=== PATIENT | female | born 1960 | race Caucasian/White ===

== ENCOUNTER 2018-11-21 07:17 | Emergency (ER) | payer BC, OTHER ==
[~2018-11-21] VITALS: Ht 167.6 cm; Wt 54.4 kg
[2018-11-21] MEDS ORDERED: KETOROLAC TROMETHAMINE 30 MG/ML VIAL IV STA (07:22)
[2018-11-21] MEDS ORDERED: METOCLOPRAMIDE HCL 10 MG/2ML VIAL IV ONE (07:30)
[2018-11-21] MEDS ORDERED: DIPHENHYDRAMINE HCL INJ 50 MG/ML VIAL IV ONE (07:30)
[2018-11-21] MEDS ORDERED: DEXAMETHASONE SOD PHOS 10 MG/1 ML VIAL IV ONE (07:30)
[2018-11-21] MEDS ORDERED: SODIUM CHLORIDE 0.9% 1000ML 1,000 ML IV ONE (07:30)
[2018-11-21 09:01] VITALS: BP 116/83
== END 2018-11-21 09:15 | disposition home or self-care (01) ==
LOC: ER 07:22
DX: R51 Headache (principal); G43.519 Persistent migraine aura without cerebral infarction, intractable, without status migrainosus; F17.210 Nicotine dependence, cigarettes, uncomplicated
CPT/HCPCS: 99283; J1100; J1200; J1885; J2765; J7030

== ENCOUNTER → 2019-02-25 | Day surgery (SDC) | payer BC ==
[~2019-02-25] MED LIST: ALPRAZOLAM2 MG PO; FENTANYL CITRATE/PF 100MCG/2 ML INJ ONE; MIDAZOLAM HCL 2 MG/2 ML VIAL ONE; NORCO 7.5-3251 EACH PO; ONE A DAY VITAMIN PO; OXYBUTYNIN CHLOR5 MG PO; PROPOFOL IV EMULSION 10 MG/ML 50 ML VIAL ONE; STOOL SOFTENER50 MG PO; TIZANIDINE HCL4 M1 PO; VITAMIN D31000 UNIT PEG
[2019-02-25 08:55] VITALS: BP 138/95
== END | disposition home or self-care (01) ==
LOC: OR 05:29
PROVIDERS: ATTEND Internal Medicine Gastroenterology
DX: Z12.11 Encounter for screening for malignant neoplasm of colon (principal); K63.5 Polyp of colon; K62.1 Rectal polyp; K62.0 Anal polyp; K64.8 Other hemorrhoids; Z71.3 Dietary counseling and surveillance; G89.29 Other chronic pain; F32.9 Major depressive disorder, single episode, unspecified; F41.9 Anxiety disorder, unspecified; Z88.1 Allergy status to other antibiotic agents; Z91.048 Other nonmedicinal substance allergy status; Z01.810 Encounter for preprocedural cardiovascular examination; Z68.1 Body mass index [BMI] 19.9 or less, adult; Z87.891 Personal history of nicotine dependence
CPT/HCPCS: 45380; 45385; 93005; J2250; J2704; 45384

== ENCOUNTER → 2019-04-10 | Day surgery (SDC) | payer BC ==
[2019-04-03 10:30] LABS: BASOPHILS % 0.6 % (0.0-1.0); EOSINOPHILS # (AUTO) 0.1 (0.0-0.4); EOSINOPHILS % 1.1 % (0.0-6.0); HEMATOCRIT 39.2 % (34.2-44.1); HEMOGLOBIN 12.8 g/dL (12.0-16.0); LYMPHOCYTES # (AUTO) 1.3 (1.0-3.2); LYMPHOCYTES % 23.7 % (18.0-39.1); MEAN CORPUSCULAR HEMOGLOBIN 31.4 pg (28-32); MEAN CORPUSCULAR HGB CONC 32.7 g/dL (31-35); MEAN CORPUSCULAR VOLUME 96.3 fL (81-99); MONOCYTES # (AUTO) 0.4 (0.2-0.8); MONOCYTES % 7.8 % (4.4-11.3); NEUTROPHILS # (AUTO) 3.6 (2.1-6.9); NEUTROPHILS % 66.4 % (38.7-80.0); PLATELET COUNT 162 x10e3/uL (140-360); RED BLOOD COUNT 4.07 x10e6/uL (3.6-5.1); RED CELL DISTRIBUTION WIDTH 13.2 % (11.7-14.4)
--- NOTE | 2019-04-03 10:45 | Diagnostic Imaging Report ---
EXAMINATION: CHEST 2 VIEWS INDICATION: Pre-operative. COMPARISON: Chest radiograph 08/10/2013. FINDINGS: TUBES and LINES: None. LUNGS: Lungs are well inflated. Biapical pleural-parenchymal opacity, suggestive of prior granulomatous disease. There is no evidence of pneumonia or pulmonary edema. PLEURA: No pleural effusion or pneumothorax. HEART AND MEDIASTINUM: The cardiomediastinal silhouette is unremarkable. BONES AND SOFT TISSUES: No acute osseous abnormality. UPPER ABDOMEN: No free air under the diaphragm. IMPRESSION: No acute radiographic abnormality. Signed by: Dr. Roxane Friend MD on 04/03/2019 10:42 AM
[2019-04-03 10:52] LABS: ANION GAP 12.9 mmol/L (8-16); CALCIUM 10.2 mg/dL (8.4-10.2); CREATININE, SERUM 1.14 mg/dL (0.57-1.11); POTASSIUM 4.9 mmol/L (3.5-5.1)
[~2019-04-10] MED LIST changes: +ACETAMINOPHEN 1000 MG/100 ML IV ONE; +BUPIVACAINE 0.25%/EPI 30ML SDV INJ ONE; +CEFOXITIN SOD 1 GM VIAL ONE; +DEXAMETHASONE SOD PHOS INJ 4 MG/ML VIAL ONE; +EPHEDRINE SULFATE INJ 50 MG/10 ML SYR ONE; +HYDROCODONE/APAP 7.5MG-325MG 1 EA TAB ONE; +HYDROMORPHONE 2MG/ML 2 MG/ML ML ONE; +KETOROLAC TROMETHAMINE 30 MG/ML VIAL ONE; +LIDOCAINE HCL 1% LOCAL INJ 20 ML VIAL ONE; +LIDOCAINE HCL 2% 30 ML TUBE ONE; +LIDOCAINE HCL 2% LOCAL INJ 5 ML SDV VIAL INJ ONE; +METOCLOPRAMIDE HCL 10 MG/2ML VIAL ONE; +ONDANSETRON HCL INJ 2MG/ML 2ML 2 MG/ML VIAL ONE; +PROMETHAZINE HCL (IM) 25 MG/ML VIAL ONE; +PROPOFOL IV EMULSION 10 MG/ML 20 ML VIAL ONE; -PROPOFOL IV EMULSION 10 MG/ML 50 ML VIAL ONE; +SEVOFLURANE INHAL SOLN 250 ML PEN BTL ONE; -VITAMIN D31000 UNIT PEG; +VITAMIN D31000 UNIT PO
--- OUTSIDE RECORDS SUMMARY | 2019-04-10 05:53 | XMS REPORT ---
Author Author [facility] [place] Address Unknown Phone Unavailable Care Team Providers Care Seed Expert Name Role Phone Joyce INTERIANO Unavailable Unavailable Problems This patient has no known problems. Allergies, Adverse Reactions, Alerts This patient has no known allergies or adverse reactions. Medications This patient has no known medications. Results Test Description Test Time Test Comments Text Results Atomic Results Result Comments CHEST 2 VIEWS 2019-04-03 10:40:00 [place] [address] Patient Name: HELEN KLINE MR #: [id number] : 1960 Age/Sex: 58/F Req #: [id number] Adm Physician: Ordered by: BIJAN INTERIANO MD Report #: [id number] Location: OR Room/Bed: Procedure: [id number] DX/CHEST 2 VIEWS Exam Date: 04/03/19 Exam Time: 1025 REPORT STATUS: Signed EXAMINATION: CHEST 2 VIEWS INDICATION: Pre- operative. COMPARISON: Chest radiograph 08/10/2013. FINDINGS: TUBES and LINES: None. LUNGS: Lungs are well inflated. Biapical pleural- parenchymal opacity, suggestive of prior granulomatous disease. There is no evidence of pneumonia or pulmonary edema. PLEURA: No pleural effusion or pneumothorax. HEART AND MEDIASTINUM: The cardiomediastinal silhouette is unremarkable. BONES AND SOFT TISSUES: No acute osseous abnormality. UPPER ABDOMEN: No free air under the diaphragm. IMPRESSION: No acute radiographic abnormality. Signed by: Dr. Ari Werner MD on 04/03/2019 10:42 AM Dictated By: ARI WERNER MD 104 Transcribed By: KARIME on 04/03/191041 COPY TO: BIJAN INTERIANO MD
--- NOTE | 2019-04-10 13:06 | Operative Report ---
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 POSTOPERATIVE DIAGNOSIS: Villous tumor of the rectum. OPERATION PERFORMED: Transanal resection of villous tumor of the rectum. ANESTHESIA: General. COMPLICATIONS: None. ESTIMATED BLOOD LOSS: Minimal. PROCEDURE IN DETAIL: With the patient lying in bed in the lithotomy position under good general anesthesia, the perineum was prepped with Betadine solution and draped in the usual manner. An anorectal block was then performed with 1% Xylocaine and 0.25% Marcaine mixed in equal parts. After this was done, examination revealed that the patient had a villous tumor that extended right up to the dentate line from about the 1 o'clock position to about the 4 o'clock position. A 0 chromic suture was then placed above highest point of the villous tumor and tied to itself. Once this was done and we had proximal control of the edge of the tumor, the external aspect of the dentate line was then sharply opened distal to the beginning of the villous tumor and the villous tumor was then sharply resected with the scissors to make sure that we had all borders of the lesion completely removed and the specimen was sent for pathological examination. After this was done, using that same 0 chromic suture, the colon was then oversewn all the way to the dentate line. After this was done, the mucosa and the skin were then reapproximated with interrupted sutures of 3-0 chromic. A Gelfoam pack impregnated with Xylocaine was placed. A dressing was applied. The sponge, lap, and needle count was correct. The patient tolerated the procedure well and returned to the recovery room in stable condition. Rashawn Mann MD JLR/MODL /[id number]
[2019-04-10 13:30] VITALS: BP 129/78
== END | disposition home or self-care (01) ==
LOC: OR 05:50
PROVIDERS: ATTEND Surgery
DX: D12.8 Benign neoplasm of rectum (principal); Z01.810 Encounter for preprocedural cardiovascular examination; Z01.812 Encounter for preprocedural laboratory examination; Z01.811 Encounter for preprocedural respiratory examination; Z88.1 Allergy status to other antibiotic agents; Z88.8 Allergy status to other drugs, medicaments and biological substances; M26.603 Bilateral temporomandibular joint disorder, unspecified; M54.9 Dorsalgia, unspecified; F32.9 Major depressive disorder, single episode, unspecified; F41.9 Anxiety disorder, unspecified; M25.559 Pain in unspecified hip; N18.9 Chronic kidney disease, unspecified
CPT/HCPCS: 36415; 45171; 71046; 80048; 85025; 88307; J0131; J0694; J1100; J1170; J1885; J2001 ×2; J2250; J2405; J2550; J2704; J2765; J3010; 88304

== ENCOUNTER 2019-08-02 09:13 | Emergency (ER) | payer BC ==
[~2019-08-02] VITALS: Ht 167.6 cm; Wt 54.4 kg
[~2019-08-02 09:13] MED LIST changes: -ACETAMINOPHEN 1000 MG/100 ML IV ONE; -BUPIVACAINE 0.25%/EPI 30ML SDV INJ ONE; -CEFOXITIN SOD 1 GM VIAL ONE; -DEXAMETHASONE SOD PHOS INJ 4 MG/ML VIAL ONE; -EPHEDRINE SULFATE INJ 50 MG/10 ML SYR ONE; -FENTANYL CITRATE/PF 100MCG/2 ML INJ ONE; -HYDROCODONE/APAP 7.5MG-325MG 1 EA TAB ONE; -HYDROMORPHONE 2MG/ML 2 MG/ML ML ONE; -KETOROLAC TROMETHAMINE 30 MG/ML VIAL ONE; -LIDOCAINE HCL 1% LOCAL INJ 20 ML VIAL ONE; -LIDOCAINE HCL 2% 30 ML TUBE ONE; -LIDOCAINE HCL 2% LOCAL INJ 5 ML SDV VIAL INJ ONE; -METOCLOPRAMIDE HCL 10 MG/2ML VIAL ONE; -MIDAZOLAM HCL 2 MG/2 ML VIAL ONE; -ONDANSETRON HCL INJ 2MG/ML 2ML 2 MG/ML VIAL ONE; -PROMETHAZINE HCL (IM) 25 MG/ML VIAL ONE; -PROPOFOL IV EMULSION 10 MG/ML 20 ML VIAL ONE; -SEVOFLURANE INHAL SOLN 250 ML PEN BTL ONE
--- NOTE | 2019-08-02 10:16 | Diagnostic Imaging Report ---
Left complete knee. CPT CODE: 16168. INDICATION: Fall, swelling COMPARISON: None FINDINGS: No evidence of acute fracture or dislocation. The visualized joint spaces of the knee are preserved. There is a small exostosis arising from the inferior aspect of the medial proximal tibia. No joint effusion. IMPRESSION: No acute traumatic pathology. Signed by: Dr. Andrew Calixto MD on 08/02/2019 10:12 AM
[2019-08-02] MEDS ORDERED: MOTRIN200 MG PO (10:27)
--- NOTE | 2019-08-02 10:30 | NUR ---
DR. MORA AT BEDSIDE UPDATING PATIENT ON DISCHARGE
== END 2019-08-02 10:39 | disposition home or self-care (01) ==
LOC: ER 09:13
DX: G89.11 Acute pain due to trauma (principal); M25.562 Pain in left knee; W18.30XA Fall on same level, unspecified, initial encounter
CPT/HCPCS: 99283